=== PATIENT | female | born 1965 | race Caucasian/White ===

== ENCOUNTER 2018-04-09 18:26 | Emergency (ER) | payer MEDICAID ==
[2018-04-09 19:33] LABS: ABSOLUTE BASOPHILS # (AUTO) 0.1 10^3/uL (0.0-0.2); ABSOLUTE EOSINOPHILS # (AUTO) 0.1 10^3/uL (0.0-0.6); ABSOLUTE LYMPHOCYTES (AUTO) 2.7 10^3/uL (0.5-4.7); ABSOLUTE MONOCYTES (AUTO) 0.6 10^3/uL (0.1-1.4); ABSOLUTE NEUT (AUTO) 7.4 10^3/uL (1.7-8.2); BASOPHILS % (AUTO) 1.3 % (0-2); EOSINOPHILS % (AUTO) 0.8 % (0-6); HEMATOCRIT 40.8 % (36.0-47.0); HEMOGLOBIN 13.8 g/dL (12.0-15.5); LYMPHOCYTES % (AUTO) 25.1 % (13-45); MEAN CORPUSCULAR HGB CONC 33.9 g/dL (32.0-36.0); MEAN CORPUSCULAR VOLUME 89 fl (80-97); MONOCYTES % (AUTO) 5.3 % (3-13); PLATELET COUNT 319 10^3/uL (150-450); RED BLOOD COUNT 4.61 10^6/uL (3.72-5.28); RED CELL DISTRIBUTION WIDTH 15.3 % (11.5-14.0); SEGMENTED NEUTROPHILS % (AUTO) 67.5 % (42-78); TOTAL CELLS COUNTED % (AUTO) 100 %; WHITE BLOOD COUNT 10.9 10^3/uL (4.0-10.5)
[2018-04-09 19:56] LABS: ALANINE AMINOTRANSFERASE 26 U/L (9-52); ALBUMIN 4.4 g/dL (3.5-5.0); ALKALINE PHOSPHATASE 97 U/L (38-126); ANION GAP 14 (5-19); ASPARTATE AMINO TRANSFERASE 24 U/L (14-36); BILIRUBIN,DIRECT 0.2 mg/dL (0.0-0.4); BILIRUBIN,TOTAL 0.2 mg/dL (0.2-1.3); BLOOD UREA NITROGEN 12 mg/dL (7-20); CALCIUM 9.8 mg/dL (8.4-10.2); CARBON DIOXIDE 29 mmol/L (22-30); CHLORIDE 100 mmol/L (98-107); GLUCOSE 95 mg/dL (75-110); POTASSIUM 3.8 mmol/L (3.6-5.0); SODIUM 142.7 mmol/L (137-145); TOTAL PROTEIN 7.3 g/dL (6.3-8.2)
[2018-04-09 19:57] LABS: ACETAMINOPHEN < 10 ug/mL (10-30); ALCOHOL < 10 mg/dL (NONE DETECTED); SALICYLATE < 1.0 mg/dL (2.0-20.0)
[2018-04-09] MEDS ORDERED: PROMETHAZINE HCL 25 MG TABLET PO ONE (19:58)
[2018-04-09] MEDS ORDERED: ACETAMINOPHEN 325 MG TABLET PO ONE (19:58)
--- NOTE | 2018-04-09 20:37 | ER Document Report ---
ED Psych Disorder / Suicide - General Mode of Arrival: Ambulatory Information source: Patient TRAVEL OUTSIDE OF THE [place] IN LAST 30 DAYS: No <STEPHANY BANDA - Last Filed: 04/09/18 23:36> <MACIE MARIN - Last Filed: 04/10/18 02:23> - General Chief Complaint: Psych Problem Stated Complaint: PSYCH EVAL Time Seen by Provider: 04/09/18 18:31 Notes: Patient is a 52 year old female with a history of mental illness presents to the emergency department on IVC paperwork complaining of excessive picking behavior, increased irritability , depression and anxiety. Patient states she has been picking herself to the point of bleeding and needs medical help. According to IVC paperwork patient stated she needs hospitalization and feels her depression medication is not working. Patient also mentions a mechanical trip and fall where she hit her head 4 days ago. She states she had some right arm numbness shortly after that has since resolved. Patient is currently taking Klonopin, Gabapentin and Thorazine. She reports being on oxygen all the time at home. (STEPHANY BANDA) - Related Data Allergies/Adverse Reactions: amoxicillin Allergy (Verified 04/09/18 18:36) asenapine [From Saphris] Allergy (Verified 04/09/18 18:36) cefotaxime [From Claforan] Allergy (Verified 04/09/18 18:36) Cephalosporins Allergy (Verified 04/09/18 18:36) ciprofloxacin Allergy (Verified 04/09/18 18:36) eszopiclone [From Lunesta] Allergy (Verified 04/09/18 18:36) fluoxetine [From Prozac] Allergy (Verified 04/09/18 18:36) fluticasone [From Flonase] Allergy (Verified 04/09/18 18:36) fluvoxamine [From Luvox] Allergy (Verified 04/09/18 18:36) lidocaine [From Lidoderm] Allergy (Verified 04/09/18 18:36) lurasidone [From Latuda] Allergy (Verified 04/09/18 18:36) paroxetine [From Paxil] Allergy (Verified 04/09/18 18:36) sertraline [From Zoloft] Allergy (Verified 04/09/18 18:36) sulfamethoxazole [From Bactrim] Allergy (Verified 04/09/18 18:36) trimethoprim [From Bactrim] Allergy (Verified 04/09/18 18:36) ziprasidone [From Geodon] Allergy (Verified 04/09/18 18:36) Past Medical History - General Information source: Patient - Social History Smoking Status: Current Every Day Smoker Frequency of alcohol use: None Drug Abuse: None Family History: Reviewed & Not Pertinent Patient has suicidal ideation: Yes Patient has homicidal ideation: No - Past Medical History Cardiac Medical History: Reports: Hx Congestive Heart Failure, Hx Coronary Artery Disease, Hx Hypertension Pulmonary Medical History: Reports: Hx Asthma, Hx Bronchitis, Hx COPD, Hx Pneumonia - spring 2015 Neurological Medical History: Reports: Hx Cerebrovascular Accident - right sided hemiparesis Endocrine Medical History: Reports: Hx Diabetes Mellitus Type 2, Hx Hypothyroidism GI Medical History: Reports: Hx Gastroesophageal Reflux Disease Psychiatric Medical History: Reports: Hx Depression Past Surgical History: Reports: Hx Hysterectomy, Hx Orthopedic Surgery - Back surgery, Hx Tubal Ligation - Immunizations Hx Diphtheria, Pertussis, Tetanus Vaccination: Yes <STEPHANY BANDA - Last Filed: 04/09/18 23:36> Review of Systems - Review of Systems Constitutional: No symptoms reported EENT: No symptoms reported Cardiovascular: No symptoms reported Respiratory: No symptoms reported Gastrointestinal: No symptoms reported Genitourinary: No symptoms reported Female Genitourinary: No symptoms reported Musculoskeletal: See HPI Skin: No symptoms reported Hematologic/Lymphatic: No symptoms reported Neurological/Psychological: See HPI -: Yes All other systems reviewed and negative <STEPHANY BANDA - Last Filed: 04/09/18 23:36> Physical Exam <STEPHANY BANDA - Last Filed: 04/09/18 23:36> <MACIE MARIN - Last Filed: 04/10/18 02:23> - Vital signs Vitals: Resp 18 04/09/18 18:30 - Notes Notes: GENERAL: Alert, interacts well. No acute distress. HEAD: Normocephalic, atraumatic. EYES: Pupils equal, round, and reactive to light. Extraocular movements intact. ENT: Oral mucosa moist, tongue midline. NECK: Full range of motion. Supple. Trachea midline. LUNGS: Clear to auscultation bilaterally, no wheezes, rales, or rhonchi. On 2 L oxygen at bedside. No respiratory distress. HEART: Regular rate and rhythm. No murmurs, gallops, or rubs. ABDOMEN: Soft, non-tender. Non-distended. Bowel sounds present in all 4 quadrants. EXTREMITIES: Moves all 4 extremities spontaneously. NEUROLOGICAL: Alert and oriented x3. Normal speech. PSYCH: Anxious. SKIN: Warm, dry, normal turgor. Multiple abrasions all over body consistent with formication. (STEPHANY BANDA) Course - Laboratory Result Diagrams: 04/09/18 19:16 04/09/18 19:16 <STEPHANY BANDA - Last Filed: 04/09/18 23:36> - Laboratory Result Diagrams: 04/09/18 19:16 04/09/18 19:16 - Diagnostic Test Radiology reviewed: Reports reviewed <MACIE MARIN - Last Filed: 04/10/18 02:23> - Re-evaluation Re-evalutation: 04/10/18 Patient is a 52-year-old female who was brought in on involuntary commitment paperwork taken out by her psychiatrist. Patient states that she has been suicidal and cannot stop picking. Patient also states that she fell recently. States that she has chronic back pain and would like something for it. No injuries of her back or extremities except for her right wrist which she moves easily. Patient states she had a head CT and cervical spine CT were performed with no acute findings. Blood work is within normal limits. Patient is positive for benzodiazepines and takes Klonopin. She is on her baseline oxygen with no wheezing. She will be held for further evaluation by mental health services. She is otherwise medically stable. (MACIE MARIN) - Vital Signs Vital signs: Temp Pulse Resp BP Pulse Ox 97.7 F 69 15 94/37 L 98 04/09/18 23:00 04/09/18 23:00 04/09/18 23:00 04/09/18 23:00 04/09/18 23:00 - Laboratory Laboratory results interpreted by mn: 04/09/18 04/09/18 19:16 19:16 WBC 10.9 H RDW 15.3 H Salicylates < 1.0 L Acetaminophen < 10 L Discharge <STEPHANY BANDA - Last Filed: 04/09/18 23:36> <MACIE MARIN - Last Filed: 04/10/18 02:23> - Discharge Clinical Impression: Suicidal ideation Depression (emotion) Qualifiers: Depression Type: unspecified Qualified Code(s): F32.9 - Major depressive disorder, single episode, unspecified Condition: Stable Disposition: OTHER Referrals: BRYNN DAIGLE MANAGER PUBLIC [Primary Care Provider] - Follow up as needed Scribe Attestation: 04/10/18 02:23 I personally performed the services described in the documentation, reviewed and edited the documentation which was dictated to the scribe in my presence, and it accurately records my words and actions. (MCAIE MARIN) Scribe Documentation - Scribe Written by Fady:: Fady Leung, 04/09/2018 21:09 acting as scribe for :: Janiya <STEPHANY BANDA - Last Filed: 04/09/18 23:36>
--- NOTE | 2018-04-09 21:27 | RADIOLOGY REPORT (SQ) ---
EXAM DESCRIPTION: CT HEAD WITHOUT COMPLETED DATE/TIME: 04/09/2018 9:19 pm REASON FOR STUDY: fall, pain COMPARISON: None TECHNIQUE: Axial images acquired through the brain without intravenous contrast. Images reviewed wi th bone, brain and subdural windows. Additional sagittal and coronal reconstructions were generated. Images stored on PACS. All CT scanners at this facility use dose modulation, iterative reconstruction, and/or weight based d osing when appropriate to reduce radiation dose to as low as reasonably achievable (ALARA). [facility]: Dose Right [facility]: CareDose [facility]: Dose Right [facility]: Teradose 4D [facility]: [employer] RADIATION DOSE: CT Rad equipment meets quality standard of care and radiation dose reduction techniq ues were employed. CTDIvol: 53.2 mGy. DLP: 937 mGy-cm. mGy. LIMITATIONS: None. FINDINGS: VENTRICLES: Normal size and contour. CEREBRUM: No masses. No hemorrhage. No midline shift. No evidence for acute infarction. Normal gra y/white matter differentiation. No areas of low density in the white matter. CEREBELLUM: No masses. No hemorrhage. No alteration of density. No evidence for acute infarction. EXTRAAXIAL SPACES: No fluid collections. No masses. ORBITS AND GLOBE: No intra- or extraconal masses. Normal contour of globe without masses. CALVARIUM: No fracture. PARANASAL SINUSES: No fluid or mucosal thickening. SOFT TISSUES: No mass or hematoma. OTHER: No other significant finding. IMPRESSION: NORMAL BRAIN CT WITHOUT CONTRAST. EVIDENCE OF ACUTE STROKE: NO. COMMENT: Quality ID # [id number]: Final reports with documentation of one or more dose reduction techniques (e.g., Automated exposure control, adjustment of the mA and/or kV according to patient size, use of iterative reconstruction technique) TECHNICAL DOCUMENTATION: JOB ID: [id number] [employer]- All Rights Reserved Reading location - IP/workstation name: [email or web address]
--- NOTE | 2018-04-09 21:28 | RADIOLOGY REPORT (SQ) ---
EXAM DESCRIPTION: CT CERVICAL SPINE WITHOUT COMPLETED DATE/TIME: 04/09/2018 9:19 pm REASON FOR STUDY: fall, pain COMPARISON: None. TECHNIQUE: Axial images acquired through the cervical spine without intravenous contrast. Images re viewed with lung, soft tissue and bone windows. Reconstructed coronal and sagittal MPR images review ed. Images stored on PACS. All CT scanners at this facility use dose modulation, iterative reconstruction, and/or weight based d osing when appropriate to reduce radiation dose to as low as reasonably achievable (ALARA). [facility]: Dose Right [facility]: CareDose [facility]: Dose Right [facility]: Teradose 4D [facility]: [employer] RADIATION DOSE: CT Rad equipment meets quality standard of care and radiation dose reduction techniq ues were employed. CTDIvol: 21.0 mGy. DLP: 413 mGy-cm. mGy. LIMITATIONS: None. FINDINGS: ALIGNMENT: Anatomic. MINERALIZATION: Normal. VERTEBRAL BODIES: No fractures or dislocation. DISCS: No significant disc disease. FACETS, LATERAL MASSES, POSTERIOR ELEMENTS: No fractures. No dislocation. No acute findings. HARDWARE: None in the spine. VISUALIZED RIBS: No fractures. LUNG APICES AND SOFT TISSUES: No significant or acute findings. OTHER: No other significant finding. IMPRESSION: NO ACUTE OR SIGNIFICANT FINDINGS IN THE CERVICAL SPINE. TECHNICAL DOCUMENTATION: JOB ID: [id number] Quality ID # [id number]: Final reports with documentation of one or more dose reduction techniques (e.g., Au tomated exposure control, adjustment of the mA and/or kV according to patient size, use of iterative reconstruction technique) 2010 [employer]- All Rights Reserved Reading location - IP/workstation name: [email or web address]
[2018-04-09 23:37] LABS: APPEARANCE,URINE CLEAR; BILIRUBIN,URINE NEGATIVE (NEGATIVE); COLOR,URINE YELLOW; GLUCOSE, URINE NEGATIVE (NEGATIVE); KETONES,URINE NEGATIVE (NEGATIVE); LEUKOCYTE ESTERASE,URINE NEGATIVE (NEGATIVE); NITRITE,URINE NEGATIVE (NEGATIVE); PROTEIN,URINE NEGATIVE (NEGATIVE); URINE SPECIFIC GRAVITY 1.008; UROBILINOGEN,URINE NEGATIVE mg/dL (<2.0)
[2018-04-09 23:47] LABS: URINE AMPHETAMINES SCREEN NEGATIVE; URINE BARBITURATES SCREEN NEGATIVE; URINE BENZODIAZEPINES SCREEN UNCONFIRMED POSITIVE; URINE COCAINE SCREEN NEGATIVE; URINE MARIJUANA (THC) SCREEN NEGATIVE; URINE METHADONE SCREEN NEGATIVE; URINE PHENCYCLIDINE SCREEN NEGATIVE
--- NOTE | 2018-04-10 07:52 | EKG REPORT ---
SEVERITY:- ABNORMAL ECG - SINUS RHYTHM PROBABLE LEFT ATRIAL ABNORMALITY LEFT POSTERIOR FASCICULAR BLOCK : Confirmed by: Gordo Vizcaino MD 10-Apr-2018 07:51:48
--- NOTE | 2018-04-10 09:57 | ER Document Report ---
Doctor's Note Notes: 04/10/18 09:56 Rounds: Chart reviewed and patient interviewed. Patient being evaluated for suicidal ideation with a history of depression. 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 All of these lesions appear to be excoriations without significant findings of any infections. No erythema, heat, fluctuance, etc. No drainage, other than weeping clear fluid from fresh excoriations. Vital signs were all essentially normal. Patient appears to be medically stable for transfer or discharge. Tom Kirkland MD
--- NOTE | 2018-04-10 12:39 | PSYCHOLOGICAL NOTE ---
Psych Note - Psych Note Psych Note: Reason for Consult: suicidal ideation Consent permissions: none Pt arrived to ED in handcuffs with [facility] department on 3L portable oxygen tank from [facility] on IVC papers for c/o self harm. Pt states she fell on Saturday and lives alone and hit her head. When asked if pt hurts herself she states she is by picking at all these scabs. Pt has scabs present all over body and head. Per [facility] department, pt can become combative easily. Pt states she is very anxious and picks at her scabs when she is anxious. Patient reports that she came to [facility] for "scratching or something." She continues to report that she is depressed and under a lot of stress and her picking his getting out of control; "picking a lot more than usual not just my legs now it is my back and my head." Patient it was able to identify stressed trigger of her mother being terminally ill for the last 2 years; "taking a toll on me." Patient disclosed that she has been inpatient psychiatric treatment multiple times however is been over 1 or 2 years since her last inpatient placement. She reports that she does have a history of attempts but disclosed "I made a promise to my mama but I need help... It is getting harder." She discloses that her plan would be to overdose. Patient then states that she is becoming very anxious and agitated and gets "so angry" that she wants to punch a wall; clinician notes patient is calmly laying back in bed with her eyes closed when she makes this comment. Patient has clinician what borderline personality means. Patient explains that she is been told for many years that she has this diagnosis but does not understand what it means. Patient then proceeded to discuss how she feels sometimes she is a "another person inside." Patient continued to elaborate and it appears the patient was trying to discuss the possibility of having an alter ego; however, patient's description of her symptoms was not congruent with manifestation of disassociative personality disorder. Clinician notes patient has 16 allergies listed for medications to include antipsychotics, antidepressants, antihistamine, sleep aid, and pain relief medication. Behavior health team contacted patient's local pharmacy. Patient is currently prescribed gabapentin 300 mg 4 times daily, clonazepam 1 mg 3 times daily, chlorpromazine 50 mg 1-2 tablets nightly,lamotrigine 200mg daily, lisinopril 5 mg daily, baclofen 10 mg 3 times daily as needed,Diazepam 2.5 mg twice daily and 5 mg nightly Belsomra 20 mg nightly as needed, Trintellix 10 mg daily, furosemide 40 mg daily, Lipitor 75 MCG daily, Zyrtec 10 mg daily, Isosorbide [place] 30mg every morning, metformin 500 mg every morning Patient is alert and orientated to person, place, time and circumstance. Mood is euthymic with congruent affect. Patient endorses passive suicidal ideation i.e. no plans means or intent. Patient denies homicidal ideation. Delusions are absent behaviors congruent with an intact reality based presentation i.e. organized and linear thought process. Intellectual abilities appear to be within average range. Attention and concentration were fair. Eye contact was fair. Conversational speech was within normal rate, tone and prosody. Insight , judgment, impulse control are fair. Medication recommendations per [facility]'s contracted psychiatrist Dr. Darshana PENA are as follows: 1.Please discontinue home medication of Valium, Klonopin, Belsomra 2.Increase home medication of Thorazine to 100 mg daily 3.Please add Cogentin 1 mg daily 4.BuSpar 10 mg twice daily Diagnosis 301.83 (F60.3) borderline personality disorder per history provided by patient 295.70 (F25.0) schizoaffective disorder; bipolar type per history provided by patient Impression\\plan: Patient is recommended for rescind of IVC and is 45 he has been cleared presented cleared from acute psychiatric services. Patient discloses passive suicidal ideation i.e. no plans means or intent. She discloses concern of increased "picking" because of her high stress with her mom being terminally ill for the last 2 years. Clinician notes after talking with patient the patient started to demonstrate very behaviorally (i.e. acting like she is passed out, trying to roll off her bed etc.). Medication recommendations have been provided. Dr. Keys was consulted and the care management this patient; attending physician is in agreement with recommendations and disposition.
[2018-04-10] MEDS ORDERED: BUSPIRONE HCL 10 MG TABLET PO ONE (12:53)
[2018-04-10 14:37] VITALS: BP 110/45
== END 2018-04-10 14:37 | disposition home or self-care (01) ==
LOC: ER 18:26
DX: F60.3 Borderline personality disorder (principal); F32.9 Major depressive disorder, single episode, unspecified; F41.9 Anxiety disorder, unspecified; R20.0 Anesthesia of skin; W01.0XXA Fall on same level from slipping, tripping and stumbling without subsequent striking against object, initial encounter; Z79.899 Other long term (current) drug therapy; F17.200 Nicotine dependence, unspecified, uncomplicated; I25.10 Atherosclerotic heart disease of native coronary artery without angina pectoris; I10 Essential (primary) hypertension; J44.9 Chronic obstructive pulmonary disease, unspecified; E11.9 Type 2 diabetes mellitus without complications
CPT/HCPCS: 93005; 99285; 36415; 80307 ×4; 84443; 85025; 80053; 81001; 70450; 72125; 93010; J3490 ×2

== ENCOUNTER 2018-07-09 13:40 | Emergency (ER) | payer MEDICAID ==
--- NOTE | 2018-07-09 13:53 | ER Document Report ---
ED Medical Screen (RME) - General Chief Complaint: Psych Problem Stated Complaint: IVC Time Seen by Provider: 07/09/18 13:48 Notes: 52 years old female brought in today by the police after being IVC for hearing voices, could not tolerate the voices, wanted to kill herself. With a history of psychiatric disorder as well as possible COPD. Could not get any history from her. She is exhibiting on and off catatonic reactions. TRAVEL OUTSIDE OF THE [place] IN LAST 30 DAYS: No - Related Data Allergies/Adverse Reactions: amoxicillin Allergy (Verified 04/09/18 18:36) asenapine [From Saphris] Allergy (Verified 04/09/18 18:36) cefotaxime [From Claforan] Allergy (Verified 04/09/18 18:36) Cephalosporins Allergy (Verified 04/09/18 18:36) ciprofloxacin Allergy (Verified 04/09/18 18:36) eszopiclone [From Lunesta] Allergy (Verified 04/09/18 18:36) fluoxetine [From Prozac] Allergy (Verified 04/09/18 18:36) fluticasone [From Flonase] Allergy (Verified 04/09/18 18:36) fluvoxamine [From Luvox] Allergy (Verified 04/09/18 18:36) lidocaine [From Lidoderm] Allergy (Verified 04/09/18 18:36) lurasidone [From Latuda] Allergy (Verified 04/09/18 18:36) paroxetine [From Paxil] Allergy (Verified 04/09/18 18:36) sertraline [From Zoloft] Allergy (Verified 04/09/18 18:36) sulfamethoxazole [From Bactrim] Allergy (Verified 04/09/18 18:36) trimethoprim [From Bactrim] Allergy (Verified 04/09/18 18:36) ziprasidone [From Geodon] Allergy (Verified 04/09/18 18:36) Past Medical History - Past Medical History Cardiac Medical History: Reports: Hx Congestive Heart Failure, Hx Coronary Artery Disease, Hx Hypertension Denies: Hx Heart Attack Pulmonary Medical History: Reports: Hx Asthma, Hx Bronchitis, Hx COPD, Hx Pneumonia - spring 2015 Neurological Medical History: Reports: Hx Cerebrovascular Accident - right sided hemiparesis. Denies: Hx Seizures Endocrine Medical History: Reports: Hx Diabetes Mellitus Type 2, Hx Hypothyroidism Renal/ Medical History: Denies: Hx Peritoneal Dialysis GI Medical History: Reports: Hx Gastroesophageal Reflux Disease Musculoskeltal Medical History: Denies Hx Arthritis Psychiatric Medical History: Reports: Hx Depression Past Surgical History: Reports: Hx Hysterectomy, Hx Orthopedic Surgery - Back surgery, Hx Tubal Ligation - Immunizations Hx Diphtheria, Pertussis, Tetanus Vaccination: Yes Physical Exam - Vital signs Vitals: Temp Pulse BP Pulse Ox 98.0 F 64 101/50 L 93 07/09/18 13:46 07/09/18 13:46 07/09/18 13:46 07/09/18 13:46 Course - Vital Signs Vital signs: Temp Pulse Resp BP Pulse Ox 98.0 F 64 101/50 L 93 07/09/18 13:46 07/09/18 13:46 07/09/18 13:46 07/09/18 13:46 Doctor's Discharge - Discharge Referrals: BRYNN DAIGLE FNP [Primary Care Provider] - Follow up as needed
[2018-07-09 14:30] LABS: ALANINE AMINOTRANSFERASE 20 U/L (9-52); ALBUMIN 4.5 g/dL (3.5-5.0); ALKALINE PHOSPHATASE 96 U/L (38-126); ANION GAP 12 (5-19); ASPARTATE AMINO TRANSFERASE 29 U/L (14-36); BILIRUBIN,DIRECT 0.5 mg/dL (0.0-0.4); BILIRUBIN,TOTAL 0.5 mg/dL (0.2-1.3); BLOOD UREA NITROGEN 20 mg/dL (7-20); CALCIUM 9.4 mg/dL (8.4-10.2); CARBON DIOXIDE 28 mmol/L (22-30); CHLORIDE 100 mmol/L (98-107); GLUCOSE 99 mg/dL (75-110); POTASSIUM 4.8 mmol/L (3.6-5.0); SODIUM 140.4 mmol/L (137-145); TOTAL PROTEIN 7.4 g/dL (6.3-8.2)
[2018-07-09 14:37] LABS: ACETAMINOPHEN < 10 ug/mL (10-30); ALCOHOL < 10 mg/dL (NONE DETECTED); SALICYLATE < 1.0 mg/dL (2.0-20.0)
[2018-07-09 14:53] LABS: ABSOLUTE BASOPHILS # (AUTO) 0.1 10^3/uL (0.0-0.2); ABSOLUTE EOSINOPHILS # (AUTO) 0.2 10^3/uL (0.0-0.6); ABSOLUTE MONOCYTES (AUTO) 0.5 10^3/uL (0.1-1.4); ABSOLUTE NEUT (AUTO) 5.3 10^3/uL (1.7-8.2); BASOPHILS % (AUTO) 0.7 % (0-2); EOSINOPHILS % (AUTO) 2.3 % (0-6); HEMATOCRIT 40.1 % (36.0-47.0); HEMOGLOBIN 13.6 g/dL (12.0-15.5); LYMPHOCYTES % (AUTO) 25.1 % (13-45); MEAN CORPUSCULAR HEMOGLOBIN 30.7 pg (27.0-33.4); MEAN CORPUSCULAR HGB CONC 33.8 g/dL (32.0-36.0); MEAN CORPUSCULAR VOLUME 91 fl (80-97); MONOCYTES % (AUTO) 6.2 % (3-13); PLATELET COUNT 276 10^3/uL (150-450); RED BLOOD COUNT 4.42 10^6/uL (3.72-5.28); RED CELL DISTRIBUTION WIDTH 13.9 % (11.5-14.0); SEGMENTED NEUTROPHILS % (AUTO) 65.7 % (42-78); TOTAL CELLS COUNTED % (AUTO) 100 %; WHITE BLOOD COUNT 8.1 10^3/uL (4.0-10.5)
--- NOTE | 2018-07-09 15:03 | ER Document Report ---
ED Psych Disorder / Suicide - General TRAVEL OUTSIDE OF THE [place] IN LAST 30 DAYS: No <SALVADOR KWAN - Last Filed: 07/09/18 19:16> <HEMALATHA RICO - Last Filed: 07/11/18 08:37> - General Chief Complaint: Psych Problem Stated Complaint: IVC Time Seen by Provider: 07/09/18 13:48 Notes: Patient brought in with papers for IVC. The form says the patient is suicidal and hearing things. Also describes her as picking herself. Has thought about slitting her wrists. Patient is not very talkative with me. Says she has a headache which she has had for "a little while". I asked the patient if she had been drinking alcohol and she denied doing so. Does not answer any other questions at this time. Apparently there is a history of depression. Patient mentions something about [facility], but denies being on any medications. (SALVADOR KWAN) - Related Data Allergies/Adverse Reactions: amoxicillin Allergy (Verified 04/09/18 18:36) asenapine [From Saphris] Allergy (Verified 04/09/18 18:36) cefotaxime [From Claforan] Allergy (Verified 04/09/18 18:36) Cephalosporins Allergy (Verified 04/09/18 18:36) ciprofloxacin Allergy (Verified 04/09/18 18:36) eszopiclone [From Lunesta] Allergy (Verified 04/09/18 18:36) fluoxetine [From Prozac] Allergy (Verified 04/09/18 18:36) fluticasone [From Flonase] Allergy (Verified 04/09/18 18:36) fluvoxamine [From Luvox] Allergy (Verified 04/09/18 18:36) lidocaine [From Lidoderm] Allergy (Verified 04/09/18 18:36) lurasidone [From Latuda] Allergy (Verified 04/09/18 18:36) paroxetine [From Paxil] Allergy (Verified 04/09/18 18:36) sertraline [From Zoloft] Allergy (Verified 04/09/18 18:36) sulfamethoxazole [From Bactrim] Allergy (Verified 04/09/18 18:36) trimethoprim [From Bactrim] Allergy (Verified 04/09/18 18:36) ziprasidone [From Geodon] Allergy (Verified 04/09/18 18:36) Past Medical History - Social History Smoking Status: Unknown if Ever Smoked Chew tobacco use (# tins/day): No Frequency of alcohol use: None Drug Abuse: None Family History: Reviewed & Not Pertinent Patient has suicidal ideation: Yes Patient has homicidal ideation: No - Past Medical History Cardiac Medical History: Reports: Hx Congestive Heart Failure, Hx Coronary Artery Disease, Hx Hypertension Denies: Hx Heart Attack Pulmonary Medical History: Reports: Hx Asthma, Hx Bronchitis, Hx COPD, Hx Pneumonia - spring 2015 Neurological Medical History: Reports: Hx Cerebrovascular Accident - right sided hemiparesis. Denies: Hx Seizures Endocrine Medical History: Reports: Hx Diabetes Mellitus Type 2, Hx Hypothyroidism GI Medical History: Reports: Hx Gastroesophageal Reflux Disease Psychiatric Medical History: Reports: Hx Depression Past Surgical History: Reports: Hx Hysterectomy, Hx Orthopedic Surgery - Back surgery, Hx Tubal Ligation - Immunizations Hx Diphtheria, Pertussis, Tetanus Vaccination: Yes <SALVADOR KWAN - Last Filed: 07/09/18 19:16> Review of Systems - Review of Systems -: Yes ROS unobtainable due to patient's medical condition - Patient does not answer questions or follow commands appropriately. <SALVADOR KWAN - Last Filed: 07/09/18 19:16> Physical Exam - Vital signs Interpretation: Normal <SALVADOR KWAN - Last Filed: 07/09/18 19:16> <HEMALATHA RICO - Last Filed: 07/11/18 08:37> - Vital signs Vitals: Temp Pulse BP Pulse Ox 98.0 F 64 101/50 L 93 07/09/18 13:46 07/09/18 13:46 07/09/18 13:46 07/09/18 13:46 - Notes Notes: PHYSICAL EXAMINATION: GENERAL: Well-appearing, in no acute distress. Patient appears to be awake, but does not respond to many of my questions and then will answer 1 or 2 questions put to her. HEAD: Atraumatic, normocephalic. EYES: Pupils equal round and reactive to light, extraocular movements intact. ENT: oropharynx clear without exudates. Moist mucous membranes. NECK: Normal range of motion, supple. LUNGS: Breath sounds clear and equal bilaterally. HEART: Regular rate and rhythm without murmurs. ABDOMEN: Soft, nontender. No guarding or rebound. No masses. BACK: No tenderness throughout entire back. EXTREMITIES: Normal range of motion without pain. NEUROLOGICAL: Normal speech, normal gait. Normal sensory, motor, and reflex exams. Awake, alert, and oriented x3. Cranial nerves normal. PSYCH: Quiet, poorly responsive to questions or commands. SKIN: Warm, dry, no rashes. (SALVADOR KWAN) Course - Laboratory Result Diagrams: 07/09/18 14:45 07/09/18 13:58 <SALVADOR KWAN - Last Filed: 07/09/18 19:16> - Laboratory Result Diagrams: 07/09/18 14:45 07/09/18 13:58 <HEMALATHA RICO - Last Filed: 07/11/18 08:37> - Re-evaluation Re-evalutation: 07/09/18 15:03 Appropriate labs are being ordered. Consultation with mental health is being requested. 07/09/18 19:16 All lab studies were essentially normal. Her drug screen was positive for benzos but nothing else. (SALVADOR KWAN) - Vital Signs Vital signs: Temp Pulse Resp BP Pulse Ox 98.3 F 65 18 115/72 97 07/11/18 06:09 07/11/18 06:09 07/11/18 06:09 07/11/18 06:09 07/11/18 06:09 - Laboratory Laboratory results interpreted by me: 07/09/18 13:58 Direct Bilirubin 0.5 H Salicylates < 1.0 L Acetaminophen < 10 L Discharge <SALVADOR KWAN - Last Filed: 07/09/18 19:16> <HEMALATHA RICO - Last Filed: 07/11/18 08:37> - Discharge Clinical Impression: Borderline personality disorder Depression Qualifiers: Depression Type: unspecified Qualified Code(s): F32.9 - Major depressive disorder, single episode, unspecified Condition: Stable Disposition: HOME, SELF-CARE Additional Instructions: You have been evaluated by both medical and behavioral health teams and been deemed appropriate for discharge. Medication adjustments have been conducted. Please decrease home medication of Lamictal to 200 mg twice daily. Please decrease home medication of Klonopin to 0.5 mg 3 times daily as needed. You are recommended to follow-up with your outpatient mental health provider, DENISA Morgan , in 3-5 days for continued outpatient services. Is also recommended you engage in grief counseling with your outpatient therapist. DEPRESSION: Your evaluation reveals that you have mental depression. While symptoms may be vague, they often include disturbance of sleep, fatigue, loss of appetite , and general loss of interest in life. While depression may be a side effect of drugs, or a reaction to a major change in your life, many cases have no known cause. If depression is acute, and related to a major loss in your life, you can expect it to clear completely with time. If you have been depressed a long time , are prone to repeated bouts of depression or low mood, or have been thinking of suicide, get help. Depression can be treated with anti-depressant medication and counselling. Long-term depression will often take a few weeks to clear, even with appropriate medication. Follow-up care is important. SUICIDAL IDEATION: Suicidal ideation is a common medical term for thoughts about suicide, which may be as detailed as a formulated plan, without the suicidal act itself. Although most people who undergo suicidal ideation do not commit suicide, some go on to make suicide attempts. The range of suicidal ideation varies greatly from fleeting to detailed planning, role playing, and unsuccessful attempts. While thoughts about suicide are common, most people do not carry out serious actions to commit suicide. Based upon your evaluation and discussion with you, we do not believe you are currently at risk to act upon your thoughts of suicide. You have agreed to return to the Emergency Department, at any time , if you feel inclined to act upon your suicidal thoughts. FOLLOW-UP CARE: If you experience worsening or a significant change in your symptoms, notify the physician immediately or return to the Emergency Department at any time for re-evaluation. Referrals: BRYNN DAIGLE FNP [NO LOCAL MD] - Follow up as needed Dale Ordoñez [Outside] - Follow up in 3-5 days [facility] [Outside] - Follow up as needed
--- NOTE | 2018-07-09 16:45 | PSYCHOLOGICAL NOTE ---
Psych Note - Psych Note Date seen by psych provider: 07/09/18 Time seen by psych provider: 14:50 Psych Note: Reason for Consult: IVC Medication recommendations per [facility]'s contracted psychiatrist Dr. Darshana PENA are as follows: Please decrease home medication of Lamictal to 200 mg twice daily Please decrease home medication of Klonopin to 0.5 mg 3 times daily as needed Patient refuses to effectively engage with clinician. She minimally opens her eyes and confirms she wants to . She states that she is having difficulty with the voices and they are going to make her crazy. She reports hearing the voices in her head but does not recognize them or what is being said; "it is just a bunch of screaming...the noise is just none stop." She disclosed that this has happened before, but stopped for a long time; "but they have been back for a while now...I just want them to stop." Patient has flat affect. Diagnosis 309.10 (F43.10) posttraumatic stress disorder 295.70 (F25.0) schizoaffective disorder; depressive type per history provided by outpatient provider 301.83 (F60.3) borderline personality disorder per history provided by patient Impression/Plan: Patient is recommended to maintain IVC for overnight mental health observation. Patient does not actively engaged with clinician, keeps her eyes closed and only discloses hearing multiple loud voices in her head giving her headache. Medication recommendations have been provided. Patient will be re-evaluated. Dr. Keys was consulted and the care management this patient; attending physicians in agreement with recommendations and disposition.
[2018-07-09] MEDS: LAMOTRIGINE 100 MG TABLET PO SCH (17:27)
[2018-07-09 17:33] LABS: APPEARANCE,URINE CLEAR; BILIRUBIN,URINE NEGATIVE (NEGATIVE); COLOR,URINE STRAW; GLUCOSE, URINE NEGATIVE (NEGATIVE); KETONES,URINE NEGATIVE (NEGATIVE); LEUKOCYTE ESTERASE,URINE NEGATIVE (NEGATIVE); NITRITE,URINE NEGATIVE (NEGATIVE); PROTEIN,URINE NEGATIVE (NEGATIVE); URINE SPECIFIC GRAVITY 1.013; UROBILINOGEN,URINE NEGATIVE mg/dL (<2.0)
[2018-07-09 17:45] LABS: URINE AMPHETAMINES SCREEN NEGATIVE; URINE BARBITURATES SCREEN NEGATIVE; URINE BENZODIAZEPINES SCREEN UNCONFIRMED POSITIVE; URINE COCAINE SCREEN NEGATIVE; URINE MARIJUANA (THC) SCREEN NEGATIVE; URINE METHADONE SCREEN NEGATIVE; URINE PHENCYCLIDINE SCREEN NEGATIVE
[2018-07-09] MEDS ORDERED: OXYCODONE-ACETAMINOPHEN 5-325 MG TABLET PO ONE (19:21)
[2018-07-09] MEDS ORDERED: ACETAMINOPHEN 325 MG TABLET PO ONE (22:14)
[2018-07-09] MEDS: CLONAZEPAM 1 MG TABLET PO PRN (22:22)
[2018-07-10] MEDS: CLONAZEPAM 1 MG TABLET PO PRN (05:05)
[2018-07-10] MEDS: LAMOTRIGINE 100 MG TABLET PO SCH ×2 (09:21→17:07)
--- NOTE | 2018-07-10 09:36 | ER Document Report ---
Doctor's Note Notes: 07/10/18 09:33 Rounds: Chart reviewed and patient interviewed. Patient being evaluated for suicidal ideation. History of schizophrenia. Patient says she is still suicidal this morning. Vital signs are all normal. Lab studies were normal except for drug screen being positive for benzos. Patient appears to be medically stable for transfer or discharge. Tom Kirkland MD
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
[2018-07-11] MEDS: CLONAZEPAM 1 MG TABLET PO PRN (02:12)
[2018-07-11] MEDS ORDERED: ACETAMINOPHEN 325 MG TABLET PO ONE (02:30)
--- NOTE | 2018-07-11 08:35 | PSYCHOLOGICAL NOTE ---
Psych Note - Psych Note Date seen by psych provider: 07/11/18 Time seen by psych provider: 07:25 Psych Note: Reason for Consult: IVC Check-in conducted with patient Patient reports that the voices have "gotten better that was seem to be bothering me as much." She denies thoughts of wanting to kill herself stating that she just wishes they could find medications at work. She continued disclosed that she used to have an aide that came to her home however it always seem to cross tie turner bad because "they always criticize." She states the last time she had an aide in her home was April. She discloses that she does not live with her mother however they do have apartments that are right on the rob from each other. Medication recommendations per [facility]'s contracted psychiatrist Dr. Darshana PENA are as follows: Please decrease home medication of Lamictal to 200 mg twice daily Please decrease home medication of Klonopin to 0.5 mg 3 times daily as needed Diagnosis 309.10 (F43.10) posttraumatic stress disorder 295.70 (F25.0) schizoaffective disorder; depressive type per history provided by outpatient provider 301.83 (F60.3) borderline personality disorder per history provided by patient Impression/Plan: Patient is recommended for rescind of IVC and is cleared from acute psychiatric services. Patient denies thoughts of wanting to harm or kill herself and states that she feels that the voices have gotten less intrusive. While patient is tearful when discussing her mother she shows insight and states that she is going through the grief process of learning that her mother is now terminal and would like grief counseling. This also demonstrated problem solving and forward thinking. Dr. Keys was consulted and the care management this patient; attending physicians in agreement with recommendations and disposition.
--- NOTE | 2018-07-11 09:19 | ER Document Report ---
Doctor's Note Notes: 07/11/18 09:19 Patient has been seen and evaluated resting comfortably no acute distress. Laboratory values previous provider note and vital signs have been evaluated. Patient otherwise looks to be stable for disposition/transfer.
[2018-07-11] MEDS: LAMOTRIGINE 100 MG TABLET PO SCH (09:49)
--- NOTE | 2018-07-11 10:48 | EKG REPORT ---
SEVERITY:- BORDERLINE ECG - SINUS RHYTHM BORDERLINE RIGHT AXIS DEVIATION CONSIDER ANTERIOR INFARCT : Confirmed by: Janel Quijano 11-Jul-2018 10:47:20
[2018-07-11 11:43] VITALS: BP 117/56
== END 2018-07-11 12:46 | disposition home or self-care (01) ==
LOC: ER 13:40
DX: F60.3 Borderline personality disorder (principal); F32.9 Major depressive disorder, single episode, unspecified; R45.851 Suicidal ideations; R51 Headache; I25.10 Atherosclerotic heart disease of native coronary artery without angina pectoris; I10 Essential (primary) hypertension; J44.9 Chronic obstructive pulmonary disease, unspecified; Z88.0 Allergy status to penicillin; Z88.8 Allergy status to other drugs, medicaments and biological substances; Z88.1 Allergy status to other antibiotic agents; E11.9 Type 2 diabetes mellitus without complications
CPT/HCPCS: 93005; 99285; 36415; 80307 ×4; 85025; 80053; 81001; 93010; J3490 ×8

== ENCOUNTER 2018-08-25 17:33 | Emergency (ER) | payer MEDICAID ==
--- NOTE | 2018-08-25 17:51 | ER Document Report ---
Addendum entered and electronically signed by TENA VARELA LPCA 08/26/18 15:13: Discharge - Discharge Clinical Impression: Suicide attempt, Borderline personality disorder, Benzodiazepine dependence Condition: Stable Disposition: HOME, SELF-CARE Additional Instructions: You have been evaluated and assessed at [facility] by both medical and behavioral health teams and deemed appropriate for discharge after presenting for SI and AV/H. You received an initial medical screening, lab work, EKG, medications, direct observation, clinical evaluations, multiple physician assessments, record review and outpatient resources for follow up. You are cleared from both services and are encouraged to follow up with your outpatient provider, [facility] as soon as possible, utilize identified coping skills of music, TV, and calling a friend, engage MCS services as needed, reschedule neurological appointment, and see PCP at scheduled appointment 09/11/18.DEPRESSION: Your evaluation reveals that you have mental depression. While symptoms may be vague, they often include disturbance of sleep, fatigue, loss of appetite, an d general loss of interest in life. While depression may be a side effect of drugs, or a reaction to a major change in your life, many cases have no known cause. If depression is acute, and related to a major loss in your life, you can expect it to clear completely with time. If you have been depressed a long time, are prone to repeated bouts of depression or low mood, or have been thinking of suicide, get help. Depression can be treated with anti-depressant medication and counselling. Long-term depression will often take a few weeks to clear, even with appropriate medication. Follow-up care is important. SUICIDAL IDEATION: Suicidal ideation is a common medical term for thoughts about suicide, which may be as detailed as a formulated plan, without the suicidal act itself. Although most people who undergo suicidal ideation do not commit suicide, some go on to make suicide attempts. The range of suicidal ideation varies greatly from fleeting to detailed planning, role playing, and unsuccessful attempts. While thoughts about suicide are common, most people do not carry out serious actions to commit suicide. Based upon your evaluation and discussion with you, we do not believe you are currently at risk to act upon your thoughts of suicide. You have agreed to return to the Emergency Department, at any time, if you feel inclined to act upon your suicidal thoughts. FOLLOW-UP CARE: If you have been referred to a physician for follow-up care, call the ysicians office for an appointment as you were instructed or within the next two days. If you experience worsening or a significant change in your symptoms, notify the physician immediately or return to the Emergency Department at any time for re-evaluation. Counseling Services It has been recommended that you seek professional counseling to assist you with the stresses that you are experiencing. Most people at some time in their lives experience personal problems with which they need help. Pride and feeling that one can't be helped keep a lot of people from the benefits of counseling. These are telephone numbers to locate the counseling services most convenient to you: HOSPITAL COUNSELING SERVICE: [facility] MENTAL HEALTH: [employer]OL[employer]TEER SUPPORT: SUICIDE PREVENTION:Suicidal Ideation Suicidal ideation is a common medical term for thoughts about suicide, which may be as detailed as a formulated plan, without the suicidal act itself. Although most people who undergo suicidal ideation do not commit suicide, some go on to make suicide attempts. The range of suicidal ideation varies greatly from fleeting to detailed planning, role playing, and unsuccessful attempts. While thoughts about suicide are common, most people do not carry out serious actions to commit suicide. However, based upon your evalutation and discussion with you, we believe you are currently at risk to act upon your thoughts of suicide. Therefore, you will be admitted to a facility for inpatient care. Depression Your evaluation reveals that you have mental depression. While symptoms may be vague, they often include disturbance of sleep, fatigue, loss of appetite, and general loss of interest in life. While depression may be a side effect of drugs, or a reaction to a major change in your life, many cases have no known cause. If depression is acute, and related to a major loss in your life, you can expect it to clear completely with time. If you have been depressed a long time, are prone to repeated bouts of depression or low mood, or have been thinking of suicide, get help. Depression can be treated with anti-depressant medication and counselling. Long-term depression will often take a few weeks to clear, even with appropriate medication. Follow-up care is important. Contact your physician, the hospital emergency center, crisis line, or your counsellor if you are losing control or having self-destructive thoughts. Referrals: [facility] [Provider Group] - Follow up as needed Original Note: ED Psych Disorder / Suicide - General Chief Complaint: Suicidal Ideation Stated Complaint: PSYCH PROBLEM Time Seen by Provider: 08/25/18 17:39 TRAVEL OUTSIDE OF THE [place] IN LAST 30 DAYS: No - HPI Notes: Patient is a 52-year-old female that presents to the emergency department for chief complaint of suicidal ideation. Patient referred from her counselor for suicidal ideation. She states over the last few weeks she has had increased suicidal thoughts. She has history of suicidal attempts in the past by cutting her wrists and overdosing on medication. Currently she states she is thinking about hanging herself. She states she would like to get help and feel better. She denies homicidal ideation. She denies chest pain, increased shortness of breath, fever, chills, nausea and vomiting. She wears 3 L nasal cannula oxygen at home for her COPD. Past Medical History: COPD, CHF, hypertension, hyperlipidemia, hypothyroidism, diabetes Past Surgical History: Reviewed in chart Social History: Reviewed in chart Family History: Reviewed and noncontributory for presenting illness Allergies: Reviewed, see documented allergy list. REVIEW OF SYSTEMS: CONSTITUTIONAL : No fever No chills No diaphoresis No recent illness EENT: No vision changes No congestion No sore throat CARDIOVASCULAR: No chest pain No palpitations RESPIRATORY: No shortness of breath No cough No difficulty breathing GASTROINTESTINAL: No abdominal pain No nausea No vomiting No diarrhea GENITOURINARY: No dysuria No hematuria No difficulty urinating MUSCULOSKELETAL: No back pain No leg pain No arm pain SKIN: No rashes No lesions LYMPHATIC: No swollen, enlarged glands. NEUROLOGICAL: No lightheadedness No headache No weakness No paresthesias PSYCHIATRIC: No anxiety depression Suicidal ideation PHYSICAL EXAMINATION: Vital signs reviewed, nursing noted reviewed. GENERAL: Well-appearing, well-nourished and in no acute distress. HEAD: Atraumatic, normocephalic. EYES: Eyes appear normal, extraocular movements intact, sclera anicteric, conjunctiva are normal. ENT: nares patent, oropharynx clear without exudates. Moist mucous membranes. NECK: Normal range of motion, supple without lymphadenopathy LUNGS: Breath sounds are diminished to auscultation bilaterally and equal. No wheezes rales or rhonchi. HEART: Regular rate and rhythm without murmurs ABDOMEN: Soft, nontender, normoactive bowel sounds. No rebound, guarding, or rigidity. No masses appreciated. EXTREMITIES: Nontender, good range of motion, no pitting or edema. NEUROLOGICAL: No focal neurological deficits. Moves all extremities spontaneously Motor and sensory grossly intact on exam. PSYCH: Tearful, withdrawn SKIN: Warm, Dry, normal turgor, no rashes or lesions noted on exposed skin - Related Data Allergies/Adverse Reactions: amoxicillin Allergy (Verified 04/09/18 18:36) asenapine [From Saphris] Allergy (Verified 04/09/18 18:36) cefotaxime [From Claforan] Allergy (Verified 04/09/18 18:36) Cephalosporins Allergy (Verified 04/09/18 18:36) ciprofloxacin Allergy (Verified 04/09/18 18:36) eszopiclone [From Lunesta] Allergy (Verified 04/09/18 18:36) fluoxetine [From Prozac] Allergy (Verified 04/09/18 18:36) fluticasone [From Flonase] Allergy (Verified 04/09/18 18:36) fluvoxamine [From Luvox] Allergy (Verified 04/09/18 18:36) lidocaine [From Lidoderm] Allergy (Verified 04/09/18 18:36) lurasidone [From Latuda] Allergy (Verified 04/09/18 18:36) paroxetine [From Paxil] Allergy (Verified 04/09/18 18:36) sertraline [From Zoloft] Allergy (Verified 04/09/18 18:36) sulfamethoxazole [From Bactrim] Allergy (Verified 04/09/18 18:36) trimethoprim [From Bactrim] Allergy (Verified 04/09/18 18:36) ziprasidone [From Geodon] Allergy (Verified 04/09/18 18:36) Past Medical History - Social History Smoking Status: Former Smoker Family History: Reviewed & Not Pertinent - Past Medical History Cardiac Medical History: Reports: Hx Congestive Heart Failure, Hx Coronary Artery Disease, Hx Hypertension Denies: Hx Heart Attack Pulmonary Medical History: Reports: Hx Asthma, Hx Bronchitis, Hx COPD, Hx Pneumonia - spring 2015 Neurological Medical History: Reports: Hx Cerebrovascular Accident - right sided hemiparesis. Denies: Hx Seizures Endocrine Medical History: Reports: Hx Diabetes Mellitus Type 2, Hx Hypothyroidism Renal/ Medical History: Denies: Hx Peritoneal Dialysis GI Medical History: Reports: Hx Gastroesophageal Reflux Disease Musculoskeletal Medical History: Denies Hx Arthritis Psychiatric Medical History: Reports: Hx Depression Past Surgical History: Reports: Hx Hysterectomy, Hx Orthopedic Surgery - Back surgery, Hx Tubal Ligation - Immunizations Hx Diphtheria, Pertussis, Tetanus Vaccination: Yes Physical Exam - Vital signs Vitals: Temp Pulse Resp BP Pulse Ox 99 F 94 18 115/40 L 94 08/25/18 17:39 08/25/18 17:39 08/25/18 17:39 08/25/18 17:39 08/25/18 17:39 Course - Re-evaluation Re-evalutation: 08/25/18 17:50 Vitals reviewed. Nursing notes reviewed. Patient is in no respiratory distress. She is breathing easily on her home 3 L nasal cannula oxygen. She is very tearful and has a plan for suicide. 08/25/18 19:27 Patient's lab work is unremarkable. Urinalysis is still pending. Patient requires oxygen for her CHF and COPD and was therefore wearing nasal cannula oxygen in the exam room. Patient grabbed the oxygen tubing and wrapped it around her neck in an attempt to strangulate herself. Patient refused to release when nursing staff intervened. The nursing staff states patient's face was starting to turn purple and they felt she was on the verge of becoming unconscious. She did not completely lose consciousness. Patient is now not speaking with me. She has linear erythema consistent with a strangulating episode. CT scan of the soft tissue neck will be obtained to evaluate for underlying soft tissue injury. Patient placed in restraints for her safety and given Haldol. Laboratory 08/25/18 08/25/18 08/25/18 18:00 18:00 18:00 WBC 10.6 H RBC 4.96 Hgb 15.4 Hct 44.3 MCV 89 MCH 31.1 MCHC 34.8 RDW 13.5 Plt Count 342 Seg Neutrophils % 63.4 Lymphocytes % 29.3 Monocytes % 5.6 Eosinophils % 1.1 Basophils % 0.6 Absolute Neutrophils 6.7 Absolute Lymphocytes 3.1 Absolute Monocytes 0.6 Absolute Eosinophils 0.1 Absolute Basophils 0.1 Sodium 136.8 L Potassium 4.4 Chloride 97 L Carbon Dioxide 30 Anion Gap 10 BUN 12 Creatinine 0.86 Est GFR ( Amer) > 60 Est GFR (Non-Af Amer) > 60 Glucose 112 H Calcium 9.9 Total Bilirubin 0.4 Direct Bilirubin 0.3 Neonat Total Bilirubin Not Reportable Neonat Direct Bilirubin Not Reportable Neonat Indirect Bili Not Reportable AST 32 ALT 24 Alkaline Phosphatase 107 Troponin I < 0.012 Total Protein 7.7 Albumin 4.7 Salicylates < 1.0 L Acetaminophen < 10 L Serum Alcohol < 10 Chest X-Ray 08/25/18 17:47 IMPRESSION: NO ACUTE RADIOGRAPHIC FINDING IN THE CHEST. 08/25/18 20:33 Patient reevaluated and is now out of restraints, she is awake and tearful. CT scan of her neck and urinalysis are still pending. Dr. Neil will follow for these results. IVC paperwork has been filled out. Patient is otherwise stable. - Vital Signs Vital signs: Temp Pulse Resp BP Pulse Ox 99 F 94 18 115/40 L 94 08/25/18 17:39 08/25/18 17:39 08/25/18 17:39 08/25/18 17:39 08/25/18 17:39 - Laboratory Result Diagrams: 08/25/18 18:00 08/25/18 18:00 Laboratory results interpreted by me: 08/25/18 08/25/18 18:00 18:00 WBC 10.6 H Sodium 136.8 L Chloride 97 L Glucose 112 H Salicylates < 1.0 L Acetaminophen < 10 L Discharge - Discharge Clinical Impression: Suicide attempt Condition: Stable
[2018-08-25 18:19] LABS: ABSOLUTE BASOPHILS # (AUTO) 0.1 10^3/uL (0.0-0.2); ABSOLUTE EOSINOPHILS # (AUTO) 0.1 10^3/uL (0.0-0.6); ABSOLUTE LYMPHOCYTES (AUTO) 3.1 10^3/uL (0.5-4.7); ABSOLUTE MONOCYTES (AUTO) 0.6 10^3/uL (0.1-1.4); ABSOLUTE NEUT (AUTO) 6.7 10^3/uL (1.7-8.2); BASOPHILS % (AUTO) 0.6 % (0-2); EOSINOPHILS % (AUTO) 1.1 % (0-6); HEMATOCRIT 44.3 % (36.0-47.0); HEMOGLOBIN 15.4 g/dL (12.0-15.5); LYMPHOCYTES % (AUTO) 29.3 % (13-45); MEAN CORPUSCULAR HEMOGLOBIN 31.1 pg (27.0-33.4); MEAN CORPUSCULAR HGB CONC 34.8 g/dL (32.0-36.0); MEAN CORPUSCULAR VOLUME 89 fl (80-97); MONOCYTES % (AUTO) 5.6 % (3-13); PLATELET COUNT 342 10^3/uL (150-450); RED BLOOD COUNT 4.96 10^6/uL (3.72-5.28); RED CELL DISTRIBUTION WIDTH 13.5 % (11.5-14.0); SEGMENTED NEUTROPHILS % (AUTO) 63.4 % (42-78); TOTAL CELLS COUNTED % (AUTO) 100 %; WHITE BLOOD COUNT 10.6 10^3/uL (4.0-10.5)
[2018-08-25 18:38] LABS: ACETAMINOPHEN < 10 ug/mL (10-30); ALANINE AMINOTRANSFERASE 24 U/L (9-52); ALBUMIN 4.7 g/dL (3.5-5.0); ALCOHOL < 10 mg/dL (NONE DETECTED); ALKALINE PHOSPHATASE 107 U/L (38-126); ANION GAP 10 (5-19); ASPARTATE AMINO TRANSFERASE 32 U/L (14-36); BILIRUBIN,DIRECT 0.3 mg/dL (0.0-0.4); BILIRUBIN,TOTAL 0.4 mg/dL (0.2-1.3); BLOOD UREA NITROGEN 12 mg/dL (7-20); CALCIUM 9.9 mg/dL (8.4-10.2); CARBON DIOXIDE 30 mmol/L (22-30); CHLORIDE 97 mmol/L (98-107); GLUCOSE 112 mg/dL (75-110); POTASSIUM 4.4 mmol/L (3.6-5.0); SALICYLATE < 1.0 mg/dL (2.0-20.0); SODIUM 136.8 mmol/L (137-145); TOTAL PROTEIN 7.7 g/dL (6.3-8.2)
--- NOTE | 2018-08-25 18:54 | RADIOLOGY REPORT (SQ) ---
EXAM DESCRIPTION: CHEST SINGLE VIEW COMPLETED DATE/TIME: 08/25/2018 6:25 pm REASON FOR STUDY: shortness of breath COMPARISON: 04/16/2016 EXAM PARAMETERS: NUMBER OF VIEWS: One view. TECHNIQUE: Single frontal radiographic view of the chest acquired. RADIATION DOSE: NA LIMITATIONS: None. FINDINGS: LUNGS AND PLEURA: No opacities, masses or pneumothorax. No pleural effusion. MEDIASTINUM AND HILAR STRUCTURES: No masses. Contour normal. HEART AND VASCULAR STRUCTURES: Heart normal in size. Normal vasculature. BONES: No acute findings. HARDWARE: None in the chest. OTHER: No other significant finding. IMPRESSION: NO ACUTE RADIOGRAPHIC FINDING IN THE CHEST. TECHNICAL DOCUMENTATION: JOB ID: [id number] [email or web address]- All Rights Reserved Reading location - IP/workstation name: [email or web address]
[2018-08-25] MEDS ORDERED: HALOPERIDOL LACTATE INJ 5 MG/1 ML VIAL IM ONE (19:26)
[2018-08-25 21:23] LABS: APPEARANCE,URINE CLEAR; BILIRUBIN,URINE NEGATIVE (NEGATIVE); COLOR,URINE YELLOW; GLUCOSE, URINE NEGATIVE (NEGATIVE); KETONES,URINE NEGATIVE (NEGATIVE); LEUKOCYTE ESTERASE,URINE NEGATIVE (NEGATIVE); NITRITE,URINE NEGATIVE (NEGATIVE); PROTEIN,URINE NEGATIVE (NEGATIVE); URINE SPECIFIC GRAVITY 1.017; UROBILINOGEN,URINE NEGATIVE mg/dL (<2.0)
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
[2018-08-25 21:34] LABS: URINE AMPHETAMINES SCREEN NEGATIVE; URINE BARBITURATES SCREEN NEGATIVE; URINE BENZODIAZEPINES SCREEN UNCONFIRMED POSITIVE; URINE COCAINE SCREEN NEGATIVE; URINE MARIJUANA (THC) SCREEN NEGATIVE; URINE METHADONE SCREEN NEGATIVE; URINE PHENCYCLIDINE SCREEN NEGATIVE
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
[2018-08-26] MEDS ORDERED: LORAZEPAM INJ 2 MG/1 ML VIAL IV ONE (03:30)
[2018-08-26 09:06] VITALS: BP 116/60
--- NOTE | 2018-08-26 10:27 | ER Document Report ---
Doctor's Note Notes: 08/26/18 10:26 Patient seen and evaluated by myself. Patient is a 52-year-old female who is brought to the emergency department for suicidal ideations about hanging herself. While in the emergency department, patient attempted to strangle herself with oxygen tubing. She had a CT of the neck done that did not show any acute process. No issues overnight per nursing. Patient was medically cleared. Patient has no medical complaints at this time. She is still complaining of depression, suicidal ideations. She states that she has been taking her medication as prescribed but does not feel that it is helping. Behavioral health was consulted. Awaiting their recommendations. 08/26/18 15:20 Behavioral health evaluated the patient. She is currently denying any suicidal ideations. She denies any homicidal ideations. I will discharge the patient home. Discharge planning in place.
--- NOTE | 2018-08-26 14:22 | EKG REPORT ---
SEVERITY:- ABNORMAL ECG - SINUS RHYTHM LEFT POSTERIOR FASCICULAR BLOCK CONSIDER ANTERIOR INFARCT BORDERLINE T ABNORMALITIES, ANTERIOR LEADS : Confirmed by: Jaida Hua MD 26-Aug-2018 14:21:22
--- NOTE | 2018-08-26 19:04 | PSYCHOLOGICAL NOTE ---
Psych Note - Psych Note Psych Note: Impression/Plan: Patient is psychiatrically clear form acute psychiatric services and recommended to discharge to home with plan to follow up with outpatient medication management, counseling, PCP, and Neurologist.
== END 2018-08-26 18:34 | disposition home or self-care (01) ==
LOC: ER 17:33
DX: T14.91XA Suicide attempt, initial encounter (principal); X83.8XXA Intentional self-harm by other specified means, initial encounter; Y92.238 Other place in hospital as the place of occurrence of the external cause; F60.3 Borderline personality disorder; F13.20 Sedative, hypnotic or anxiolytic dependence, uncomplicated; Z78.1 Physical restraint status; I10 Essential (primary) hypertension; I25.10 Atherosclerotic heart disease of native coronary artery without angina pectoris; E11.9 Type 2 diabetes mellitus without complications; F32.9 Major depressive disorder, single episode, unspecified; J44.9 Chronic obstructive pulmonary disease, unspecified; Z99.81 Dependence on supplemental oxygen; Z88.0 Allergy status to penicillin; Z88.1 Allergy status to other antibiotic agents; Z88.8 Allergy status to other drugs, medicaments and biological substances; Z87.891 Personal history of nicotine dependence
CPT/HCPCS: 93005; 99285; 96372; 96374; 36415; 80307 ×4; 85025; 80053; 81001; 84484; 71045; 70491; 93010; J1630; J2060